=== PATIENT | male | born 1955 | race Caucasian/White ===

== ENCOUNTER 2016-10-21 17:00 | Emergency (ER) | payer BC, MEDICARE ==
[2016-10-21 17:21] LABS: BASO % 0.3 % (0.2-1.2); EOS # 0.2 10_X3_uL (0.0-0.5); EOS % 2.3 % (0.8-7.0); GRAN # 4.7 10_X3_uL (1.8-5.4); GRAN % 68.7 % (34.0-67.9); HEMATOCRIT 40.6 % (40-51); HEMOGLOBIN 13.4 g/dL (13.7-17.5); LYMPH # 1.5 10_X3_uL (1.3-3.6); MEAN CORPUSCULAR HEMOGLOBIN 27.5 pg (27.0-33.0); MEAN CORPUSCULAR VOLUME 83.4 fL (79-92); MEAN PLATELET VOLUME 10.1 fl (7.5-11.5); MONO # 0.5 10_X3_uL (0.3-0.8); MONO % 6.7 % (5.3-12.2); PLATELET COUNT 230 x10_3/uL (163-337); RED BLOOD COUNT 4.87 x10_6/uL (4.6-6.1); RED CELL DISTRIBUTION WIDTH 15.2 % (11.6-14.4); WHITE BLOOD COUNT 6.8 x10_3/uL (4.2-9.1)
[2016-10-21 17:34] LABS: CALCIUM 9.9 mg/dL (8.7-10.7); CARBON DIOXIDE 25 mmol/L (21-32); CREATININE 1.1 mg/dL (0.6-1.3); GLUCOSE,RANDOM 150 mg/dL (70-99); POTASSIUM 4.8 mmol/L (3.5-5.1); SODIUM 140 mmol/L (136-145)
[2016-10-21 17:38] LABS: BLOOD UREA NITROGEN 24 mg/dL (7-18)
== END 2016-10-21 21:30 | disposition short-term general hospital (02) ==
LOC: EDSTATUS 17:00 → ER 17:01
PROVIDERS: General Practice
DX: I24.9 Acute ischemic heart disease, unspecified (principal); I10 Essential (primary) hypertension; I25.10 Atherosclerotic heart disease of native coronary artery without angina pectoris; E11.9 Type 2 diabetes mellitus without complications; E78.5 Hyperlipidemia, unspecified; Z95.1 Presence of aortocoronary bypass graft; Z79.82 Long term (current) use of aspirin; Z79.02 Long term (current) use of antithrombotics/antiplatelets; Z79.899 Other long term (current) drug therapy; R94.31 Abnormal electrocardiogram [ECG] [EKG]
CPT/HCPCS: 36415; 71010; 80048; 85025; 93005; 96372; 99070; 99285-25